=== PATIENT | female | born 1990 | race Caucasian/White ===

== ENCOUNTER → 2019-11-29 12:36 | Outpatient (BNVA) | payer OTHER, SELFPAY | PROVIDERS: Visit Provider Internal Medicine Rheumatology | DX: R76.8 Other specified abnormal immunological findings in serum (principal); Z79.899 Other long term (current) drug therapy; M19.90 Unspecified osteoarthritis, unspecified site; R53.82 Chronic fatigue, unspecified; R06.02 Shortness of breath; M62.81 Muscle weakness (generalized) | CPT/HCPCS: 36415; 85651; 86225; 86235; 99204 ==

== ENCOUNTER → 2019-11-29 15:30 | Outpatient (BNVA) | payer OTHER, SELFPAY | PROVIDERS: Visit Provider Internal Medicine Rheumatology | DX: R76.8 Other specified abnormal immunological findings in serum (principal); R53.83 Other fatigue; M19.90 Unspecified osteoarthritis, unspecified site; R06.02 Shortness of breath; M62.81 Muscle weakness (generalized); R53.82 Chronic fatigue, unspecified; Z79.899 Other long term (current) drug therapy | CPT/HCPCS: 80076; 81001; 82306; 82565; 82570; 84156; 84439; 85025; 86140; 86160 ==